=== PATIENT | male | born 1955 | race Asian ===

== ENCOUNTER 2022-01-22 14:24 | Emergency (ER) | payer MEDICARE, MEDICAID ==
[~2022-01-22] VITALS: Ht 170.2 cm; Wt 65.9 kg
[~2022-01-22 14:24] MED LIST: ACET-3385 PO; AMLO-258 PO; HYDR50TA36 PO; INSLAN SQ; INSU100V SQ; LEVE500T20 PO; LISI-892 PO; METO25XL PO
[2022-01-22 15:06] LABS: GLUCOSE,POINT OF CARE 165 MG/DL (70-110)
[2022-01-22 15:08] LABS: BASOPHILS % (AUTO) 0.8 % (0.0-2.0); HEMOGLOBIN 8.4 g/dL (13.5-17.5); LYMPHOCYTES # (AUTO) 1.7 K/uL (1.0-4.8); LYMPHOCYTES % (AUTO) 14.6 % (22.0-44.0); MEAN CORPUSCULAR HEMOGLOBIN 31.9 pg (26.0-34.0); MEAN CORPUSCULAR HGB CONC 33.6 G/dL (31.0-37.0); MEAN CORPUSCULAR VOLUME 95 fL (80-100); MONOCYTES # (AUTO) 0.8 K/uL (0.1-1.0); MONOCYTES % (AUTO) 6.5 % (2.0-9.0); NEUTROPHILS # (AUTO) 5.9 K/uL (1.8-7.7); NEUTROPHILS % (AUTO) 50.5 % (40.0-70.0); PLATELET COUNT (AUTO) 305 K/uL (150-450); RED BLOOD CELL COUNT(AUTO) 2.64 MIL/uL (4.50-5.90); RED CELL DISTRIBUTION WIDTH 13.9 % (11.5-14.5)
[2022-01-22 15:22] LABS: CREATININE 2.16 mg/dL (0.60-1.30); POTASSIUM 5.1 mmol/L (3.5-5.1)
[2022-01-22 15:26] LABS: ALBUMIN 3.2 g/dL (3.4-5.0); BILIRUBIN,TOTAL 0.2 mg/dL (0.1-1.0); TOTAL PROTEIN, SERUM 7.5 g/dL (6.4-8.2)
[2022-01-22 15:59] LABS: EOSINOPHILS % (AUTO) 27.6 % (1.0-6.0)
[2022-01-22 16:37] LABS: APPEARANCE,URINE HAZY (CLEAR); BILIRUBIN,URINE NEGATIVE (NEGATIVE); GLUCOSE, URINE (UA) >=1000 mg/dL (NEGATIVE); KETONES,URINE NEGATIVE (NEGATIVE); LEUKOCYTE ESTERASE ,URINE LARGE (NEGATIVE); NITRATE,URINE NEGATIVE (NEGATIVE); OCCULT BLOOD,URINE LARGE (NEGATIVE); PROTEIN,URINE 300-600,SEE CONFIRM mg/dL (NEGATIVE); SPECIFIC GRAVITIY, URINE 1.007 (1.003-1.030); UROBILINOGEN,URINE <=1.0 mg/dL (<=1.0)
[2022-01-22] MEDS ORDERED: DAPA5TAB PO (16:37)
[2022-01-22] MEDS ORDERED: ICOS1CAP2 PO (16:37)
[2022-01-22] MEDS ORDERED: CHOL200074 PO (16:37)
[2022-01-22] MEDS ORDERED: LINA5TAB PO (16:37)
[2022-01-22] MEDS ORDERED: FURO20TA4 PO (16:37)
[2022-01-22] MEDS ORDERED: SLOWK8 PO (16:37)
[2022-01-22] MEDS ORDERED: ASPI-1444 PO (16:37)
[2022-01-22] MEDS ORDERED: TAMS-13 PO (16:37)
[2022-01-22] MEDS ORDERED: SODI650T PO (16:37)
[2022-01-22] MEDS ORDERED: LOSA-382 PO (16:37)
[2022-01-22] MEDS ORDERED: LEVO50TA11 PO (16:37)
[2022-01-22] MEDS ORDERED: ATOR40TA71 PO (16:37)
[2022-01-22 17:01] LABS: SULFOSALICYLIC ACID,URINE 4+ (Negative)
[2022-01-22 17:02] LABS: BACTERIA,URINE Moderate /HPF (None Seen); SQUAMOUS EPITHELIAL CELL,UR Few /LPF (None Seen)
[2022-01-22 17:03] LABS: AMORPHOUS SEDIMENT,UR Few /LPF (None Seen)
[2022-01-22 17:05] VITALS: BP 129/71
[2022-01-22] MEDS ORDERED: CEPH-558 PO (17:18)
[2022-01-22] MEDS ORDERED: CEPHALEXIN MONOHYDRATE 500 MG CAPSULE PO ONE (17:30)
== END 2022-01-22 17:50 | disposition home or self-care (01) ==
LOC: EMS 14:27
DX: N39.0 Urinary tract infection, site not specified (principal); E11.9 Type 2 diabetes mellitus without complications; I10 Essential (primary) hypertension; Z86.2 Personal history of diseases of the blood and blood-forming organs and certain disorders involving the immune mechanism; Z86.73 Personal history of transient ischemic attack (TIA), and cerebral infarction without residual deficits
CPT/HCPCS: 80053; 81001; 81002; 82962; 85025; 87086; 99283

== ENCOUNTER → 2022-12-21 | Outpatient (CLI) | payer MEDICARE, MEDICAID ==
[~2022-12-21] MED LIST changes: +ASPI-1444 PO; +ATOR40TA71 PO; +CEPH-558 PO; +CHOL200074 PO; +DAPA5TAB PO; +FURO20TA4 PO; +ICOS1CAP2 PO; +LEVO50TA11 PO; +LINA5TAB PO; -LISI-892 PO; +LOSA-382 PO; +SLOWK8 PO; +SODI650T PO; +TAMS0.4C34 PO
[2022-12-21 09:21] LABS: HEMATOCRIT 30.6 % (41-53); HEMOGLOBIN 10.3 g/dL (13.5-17.5)
[2022-12-21 09:32] LABS: HEMOGLOBIN A1C 5.7 % (3.8-5.6)
[2022-12-21 09:43] LABS: ALBUMIN 3.4 g/dL (3.4-5.0); BILIRUBIN,TOTAL 0.2 mg/dL (0.1-1.0); CALCIUM, TOTAL 9.4 mg/dL (8.8-10.5); CHOL/HDL RATIO 3.5 (4.2-7.3); CREATININE 2.22 mg/dL (0.60-1.30); THYROID STIMULATING HORMONE 3.81 uIU/mL (0.36-3.74); TOTAL PROTEIN, SERUM 8.3 g/dL (6.4-8.2)
[2022-12-21 09:46] LABS: POTASSIUM 4.7 mmol/L (3.5-5.1)
[2022-12-21 11:53] LABS: CREATININE,URINE RANDOM 43.7 mg/dL (30.0-125.0)
== END | disposition home or self-care (01) ==
LOC: LABMN 08:36
PROVIDERS: ATTEND Internal Medicine Nephrology
DX: E11.22 Type 2 diabetes mellitus with diabetic chronic kidney disease (principal); N18.4 Chronic kidney disease, stage 4 (severe); E03.9 Hypothyroidism, unspecified; D63.1 Anemia in chronic kidney disease
CPT/HCPCS: 80053; 80061; 82570; 83036; 84156; 84443; 85014; 85018

== ENCOUNTER → 2023-07-28 | Outpatient (CLI) | payer MEDICARE, MEDICAID ==
[~2023-07-28] MED LIST changes: -TAMS0.4C34 PO; +TAMS0.4C94 PO
[2023-07-28 09:29] LABS: BASOPHILS % (AUTO) 0.9 % (0.0-2.0); HEMATOCRIT 30.4 % (41-53); HEMOGLOBIN 10.6 g/dL (13.5-17.5); LYMPHOCYTES % (AUTO) 20.6 % (22.0-44.0); MEAN CORPUSCULAR HGB CONC 34.8 G/dL (31.0-37.0); MEAN CORPUSCULAR VOLUME 98 fL (80-100); MONOCYTES # (AUTO) 0.5 K/uL (0.1-1.0); MONOCYTES % (AUTO) 5.3 % (2.0-9.0); NEUTROPHILS # (AUTO) 4.9 K/uL (1.8-7.7); NEUTROPHILS % (AUTO) 51.5 % (40.0-70.0); PLATELET COUNT (AUTO) 293 K/uL (150-450); RED BLOOD CELL COUNT(AUTO) 3.11 MIL/uL (4.50-5.90); RED CELL DISTRIBUTION WIDTH 13.6 % (11.5-14.5); WHITE BLOOD COUNT (AUTO) 9.5 K/uL (4.5-11.0)
[2023-07-28 09:34] LABS: EOSINOPHILS % (AUTO) 21.7 % (1.0-6.0)
[2023-07-28 09:43] LABS: HEMOGLOBIN A1C 5.8 % (3.8-5.6)
[2023-07-28 09:48] LABS: ALBUMIN 3.9 g/dL (3.4-5.0); BILIRUBIN,TOTAL 0.4 mg/dL (0.1-1.0); CALCIUM, TOTAL 9.1 mg/dL (8.8-10.5); CHOL/HDL RATIO 1.8 (4.2-7.3); CREATININE 2.3 mg/dL (0.60-1.30); FREE T4 (FREE THYROXINE) 1.4 ng/dL (0.76-1.46); MAGNESIUM 2.7 mg/dL (1.80-2.40); POTASSIUM 4.4 mmol/L (3.5-5.1); THYROID STIMULATING HORMONE 3.98 uIU/mL (0.36-3.74); TOTAL PROTEIN, SERUM 8.6 g/dL (6.4-8.2)
== END | disposition home or self-care (01) ==
LOC: LABMN 08:22
PROVIDERS: ATTEND Internal Medicine Cardiovascular Disease
DX: E11.22 Type 2 diabetes mellitus with diabetic chronic kidney disease (principal); I13.0 Hypertensive heart and chronic kidney disease with heart failure and stage 1 through stage 4 chronic kidney disease, or unspecified chronic kidney disease; N18.30 Chronic kidney disease, stage 3 unspecified; E55.9 Vitamin D deficiency, unspecified; D63.1 Anemia in chronic kidney disease; E11.8 Type 2 diabetes mellitus with unspecified complications; E03.9 Hypothyroidism, unspecified; I50.9 Heart failure, unspecified
CPT/HCPCS: 80053; 80061; 82306; 82570; 83036; 83735; 83880; 84156; 84439; 84443; 84480; 85025

== ENCOUNTER 2024-03-10 14:02 | Inpatient (IN) | payer MEDICARE, MEDICAID ==
[~2024-03-10] VITALS: Ht 170.2 cm; Wt 63.6 kg
[~2024-03-10 14:02] MED LIST changes: +LEVE-71 PO; -LEVE500T20 PO
[2024-03-10] MEDS ORDERED: DAPA10TA PO (15:14)
[2024-03-10] MEDS ORDERED: ALLO-97 PO (15:14)
[2024-03-10] MEDS ORDERED: GABA-1201 PO (15:14)
[2024-03-10] MEDS ORDERED: CHOL25TA4 PO (15:14)
[2024-03-10] MEDS ORDERED: LEVO75 PO (15:14)
[2024-03-10] MEDS ORDERED: SODI650T33 PO (15:14)
[2024-03-10] MEDS ORDERED: LOSA-381 PO (15:14)
[2024-03-10] MEDS ORDERED: EZET10TA57 PO (15:14)
[2024-03-10] MEDS ORDERED: AMLO5TAB66 PO (15:14)
[2024-03-10] MEDS ORDERED: FERR-82 PO (15:14)
[2024-03-10] MEDS ORDERED: ATOR20TA PO (15:14)
[2024-03-10] MEDS ORDERED: FOLI0.4T14 PO (15:14)
[2024-03-10] MEDS ORDERED: DOCU-385 PO (15:14)
[2024-03-10 15:19] LABS: COVID AG,FIA SOURCE NASAL SWAB
[2024-03-10 15:45] LABS: SARS-COV2 (COVID) ANTIGEN,FIA Negative (Negative)
[2024-03-10 15:46] LABS: INFLUENZA TYPE A NEGATIVE FOR TYPE A (NEGATIVE); INFLUENZA TYPE B NEGATIVE FOR TYPE B (NEGATIVE)
[2024-03-10] MEDS ORDERED: 0.9% SODIUM CHLORIDE 10 ML SYRINGE IVP PRN (16:45)
[2024-03-10 17:01] LABS: BASOPHILS % (AUTO) 0.4 % (0.0-2.0); EOSINOPHILS % (AUTO) 2.6 % (1.0-6.0); HEMATOCRIT 27.9 % (41-53); HEMOGLOBIN 9.2 g/dL (13.5-17.5); LYMPHOCYTES # (AUTO) 0.7 K/uL (1.0-4.8); LYMPHOCYTES % (AUTO) 6.2 % (22.0-44.0); MEAN CORPUSCULAR HGB CONC 32.9 G/dL (31.0-37.0); MEAN CORPUSCULAR VOLUME 97 fL (80-100); MONOCYTES # (AUTO) 0.8 K/uL (0.1-1.0); NEUTROPHILS # (AUTO) 10.1 K/uL (1.8-7.7); NEUTROPHILS % (AUTO) 83.8 % (40.0-70.0); PLATELET COUNT (AUTO) 195 K/uL (150-450); RED BLOOD CELL COUNT(AUTO) 2.87 MIL/uL (4.50-5.90); RED CELL DISTRIBUTION WIDTH 14.1 % (11.5-14.5)
[2024-03-10] MEDS: SODIUM CHLORIDE 0.9% 1,900 ML IV ONE (17:01)
[2024-03-10] MEDS: CefTRIAXone 1 GM/DEXTROSE 50 ML IV ONE (17:02)
[2024-03-10] MEDS ORDERED: MAGNESIUM HYDROXIDE SUSPENSION 30 ML UDCUP PO PRN (17:30)
[2024-03-10 17:35] LABS: B-TYPE NATRIURETIC PEPTIDE 159 pg/mL (0-100)
[2024-03-10 17:36] LABS: PROTHROMBIN TIME 9.9 SEC (9.4-11.6)
[2024-03-10 17:36] LABS: APPEARANCE,URINE CLEAR (CLEAR); BILIRUBIN,URINE NEGATIVE (NEGATIVE); COLOR,URINE LIGHT YELLOW (YELLOW); GLUCOSE, URINE (UA) >=1000 mg/dL (NEGATIVE); KETONES,URINE NEGATIVE (NEGATIVE); LEUKOCYTE ESTERASE ,URINE LARGE (NEGATIVE); NITRATE,URINE NEGATIVE (NEGATIVE); OCCULT BLOOD,URINE TRACE (NEGATIVE); PROTEIN,URINE 30-70 mg/dL (NEGATIVE); SPECIFIC GRAVITIY, URINE 1.009 (1.003-1.030); UROBILINOGEN,URINE <=1.0 mg/dL (<=1.0)
[2024-03-10 17:39] LABS: ANION GAP 10 mmol/L (8-16); CALCIUM, TOTAL 8.9 mg/dL (8.8-10.5); CARBON DIOXIDE 24 mmol/L (22-29); CHLORIDE 101 mmol/L (98-107); CREATININE 2.65 mg/dL (0.60-1.30); GLOMERULAR FILTR. RATE CALC 24 mL/min (>60); GLUCOSE,RANDOM 150 mg/dL (70-110); POTASSIUM 4.3 mmol/L (3.5-5.1); SODIUM SERUM 134 mmol/L (136-145); UREA NITROGEN, BLOOD 56 mg/dL (7-18)
[2024-03-10 17:45] LABS: ALANINE AMINOTRANSFERASE 34 U/L (12-78); ALBUMIN 3.1 g/dL (3.4-5.0); ALKALINE PHOSPHATASE 86 U/L (46-116); ASPARTATE AMINOTRANSFERASE 34 U/L (15-37); BILIRUBIN,TOTAL 0.2 mg/dL (0.1-1.0); TOTAL PROTEIN, SERUM 7.9 g/dL (6.4-8.2)
[2024-03-10 17:46] LABS: TROPONIN I-HIGH SENSITIVITY 16 ng/L (<76)
[2024-03-10 17:49] LABS: LACTIC ACID 0.8 mmol/L (0.4-2.0)
[2024-03-10 17:52] LABS: RBC,URINE 0-2 /HPF (0-2); WBC,URINE 51-100 /HPF (0-5)
[2024-03-10 17:53] LABS: BACTERIA,URINE Moderate /HPF (None Seen); SQUAMOUS EPITHELIAL CELL,UR Moderate /LPF (None Seen)
[2024-03-10] MEDS ORDERED: DEXTROSE 50%-WATER 25 GM/50 ML SYRINGE IVP PRN (18:15)
[2024-03-10 20:54] VITALS: BP 138/57; PULSE 86; RESP 18; TEMP 98.5; O2SAT 97
[2024-03-10 22:16] LABS: GLUCOMETER DEV NAME(LOC) 4E.2; GLUCOSE,POINT OF CARE 111 MG/DL (70-110)
[2024-03-10] MEDS: MELATONIN 3 MG TABLET PO PRN (22:29)
[2024-03-10] MEDS: HEPARIN SODIUM,PORCINE 5,000 UNITS/ML VIAL SQ SCH (22:29)
[2024-03-11 04:28] VITALS: BP 119/54; PULSE 58; RESP 18; TEMP 98.3; O2SAT 98
[2024-03-11] MEDS: FAMOTIDINE 20 MG TABLET PO SCH (08:36)
[2024-03-11 08:39] VITALS: BP 116/56; PULSE 59; RESP 18; TEMP 99.2; O2SAT 98
[2024-03-11] MEDS: INSULIN LISPRO 100 UNITS/ML SQ PRN (12:13)
[2024-03-11] MEDS: CHOLECALCIFEROL (VIT D3) 2,000 UNITS [50 MCG] TABLET PO SCH (12:14)
[2024-03-11] MEDS: SODIUM CHLORIDE 0.9% 1,000 ML IV SCH (12:14)
[2024-03-11] MEDS: EPOETIN ALFA 10,000 UNITS/ML VIAL SQ ONE (12:14)
[2024-03-11 12:56] LABS: GLUCOMETER DEV NAME(LOC) 4E.2; GLUCOSE,POINT OF CARE 148 MG/DL (70-110)
[2024-03-11 12:56] LABS: GLUCOMETER DEV NAME(LOC) 4E.2; GLUCOSE,POINT OF CARE 99 MG/DL (70-110)
[2024-03-11] MEDS: CefTRIAXone 1 GM/DEXTROSE 50 ML IV SCH (16:02)
[2024-03-11] MEDS: ACETAMINOPHEN 325 MG TABLET PO PRN (16:51)
[2024-03-11 18:05] LABS: GLUCOMETER DEV NAME(LOC) 6N.2B; GLUCOSE,POINT OF CARE 130 MG/DL (70-110)
[2024-03-11 19:50] VITALS: BP 130/55; PULSE 60; RESP 18; TEMP 98.5; O2SAT 97
[2024-03-12 05:31] VITALS: BP 112/60; PULSE 63; RESP 18; TEMP 98.5; O2SAT 98
[2024-03-12 06:21] LABS: BASOPHILS % (AUTO) 0.8 % (0.0-2.0); EOSINOPHILS % (AUTO) 12.7 % (1.0-6.0); HEMATOCRIT 27.1 % (41-53); HEMOGLOBIN 9.3 g/dL (13.5-17.5); LYMPHOCYTES # (AUTO) 1.2 K/uL (1.0-4.8); LYMPHOCYTES % (AUTO) 20.3 % (22.0-44.0); MEAN CORPUSCULAR HEMOGLOBIN 33.4 pg (26.0-34.0); MEAN CORPUSCULAR HGB CONC 34.5 G/dL (31.0-37.0); MEAN CORPUSCULAR VOLUME 97 fL (80-100); MONOCYTES # (AUTO) 0.9 K/uL (0.1-1.0); MONOCYTES % (AUTO) 14.5 % (2.0-9.0); NEUTROPHILS # (AUTO) 3.1 K/uL (1.8-7.7); NEUTROPHILS % (AUTO) 51.7 % (40.0-70.0); PLATELET COUNT (AUTO) 218 K/uL (150-450); RED BLOOD CELL COUNT(AUTO) 2.79 MIL/uL (4.50-5.90); RED CELL DISTRIBUTION WIDTH 13.7 % (11.5-14.5)
[2024-03-12 06:25] LABS: CALCIUM, TOTAL 8.6 mg/dL (8.8-10.5); CREATININE 2.17 mg/dL (0.60-1.30); POTASSIUM 4.6 mmol/L (3.5-5.1)
[2024-03-12 07:53] VITALS: BP 140/57; PULSE 55; RESP 19; TEMP 98.4; O2SAT 98
[2024-03-12] MEDS: LOSARTAN POTASSIUM 50 MG TABLET PO SCH (08:35)
[2024-03-12] MEDS ORDERED: CIPR250T6 PO (09:32)
[2024-03-12 11:41] LABS: GLUCOMETER DEV NAME(LOC) 6N.2B; GLUCOSE,POINT OF CARE 102 MG/DL (70-110)
[2024-03-12 11:41] LABS: GLUCOMETER DEV NAME(LOC) 6N.2B; GLUCOSE,POINT OF CARE 156 MG/DL (70-110)
[2024-03-12 11:41] LABS: GLUCOMETER DEV NAME(LOC) 6N.2B; GLUCOSE,POINT OF CARE 153 MG/DL (70-110)
[2024-03-12 16:07] VITALS: BP 134/66; PULSE 66; RESP 19; TEMP 98.2; O2SAT 98
[2024-03-12] MEDS ORDERED: SODIUM CHLORIDE 0.9% 500 ML IV ONE (17:40)
[2024-03-12 22:46] VITALS: BP 129/63; PULSE 57; RESP 18; TEMP 98.6; O2SAT 100
[2024-03-12 23:36] LABS: GLUCOMETER DEV NAME(LOC) 6N.2B; GLUCOSE,POINT OF CARE 160 MG/DL (70-110)
[2024-03-13 06:56] VITALS: BP 132/67; PULSE 60; RESP 18; TEMP 98.6; O2SAT 100
[2024-03-13 07:23] VITALS: BP 136/60; PULSE 50; RESP 18; TEMP 98.1; O2SAT 100
[2024-03-13 08:31] LABS: GLUCOMETER DEV NAME(LOC) 6N.2B; GLUCOSE,POINT OF CARE 102 MG/DL (70-110)
[2024-03-13 12:35] LABS: GLUCOMETER DEV NAME(LOC) 4E.2; GLUCOSE,POINT OF CARE 200 MG/DL (70-110)
== END 2024-03-13 11:00 | disposition home or self-care (01) | DRG 871 ==
LOC: EMS 14:02 → EDH 17:25 → 4E 20:20
PROVIDERS: ADMIT Internal Medicine; ATTEND Internal Medicine
DX: A41.9 Sepsis, unspecified organism (principal); G92.8 Other toxic encephalopathy; N17.9 Acute kidney failure, unspecified; N39.0 Urinary tract infection, site not specified; I69.354 Hemiplegia and hemiparesis following cerebral infarction affecting left non-dominant side; N18.4 Chronic kidney disease, stage 4 (severe); E87.1 Hypo-osmolality and hyponatremia; N25.81 Secondary hyperparathyroidism of renal origin; Z20.822 Contact with and (suspected) exposure to COVID-19; Z68.22 Body mass index [BMI] 22.0-22.9, adult; E11.22 Type 2 diabetes mellitus with diabetic chronic kidney disease; I12.9 Hypertensive chronic kidney disease with stage 1 through stage 4 chronic kidney disease, or unspecified chronic kidney disease; R62.7 Adult failure to thrive; E03.9 Hypothyroidism, unspecified; N40.0 Benign prostatic hyperplasia without lower urinary tract symptoms; E78.5 Hyperlipidemia, unspecified; F32.A Depression, unspecified; E11.319 Type 2 diabetes mellitus with unspecified diabetic retinopathy without macular edema; D63.1 Anemia in chronic kidney disease; Z87.440 Personal history of urinary (tract) infections; Z79.899 Other long term (current) drug therapy; Z79.82 Long term (current) use of aspirin
CPT/HCPCS: 71045; 80048; 80053; 81001; 82962; 83605; 83880; 84145; 84443; 84484; 85025; 85610; 87040; 87086; 87804; 93005; 99285; G0378; J0696; J0885; J1644; J7030; J7040; 36415-L1; 36415-TC